=== PATIENT | female | born 1970 | race Caucasian/White ===

== ENCOUNTER → 2017-03-24 | Outpatient (CLI) | payer BC ==
--- NOTE | 2017-03-24 17:05 | KCIC ---
Bilateral digital screening mammograms: Reason for examination: Routine screening. Comparison is made to previous study dated 07/23/2012. The skin and nipples show no abnormalities. No abnormal axillary lymph nodes are seen. Bilateral breast implants on now present. The breast parenchyma is heterogeneously dense. (Breast density: Category C) There is suggestion of a small nodular density close to the medial aspect of the implant on the right cc view measuring approximately 6 mm in size. Recommend further evaluation with ultrasound. There are no other new dominant masses, suspicious calcifications or architectural distortion. A few benign calcifications are seen. Impression: Possible 6 mm nodule in the medial right breast seen on cc view adjacent to the implant. Recommend further evaluation with ultrasound. Your patient's mammogram demonstrates that she has dense breast tissue (breast density category C or D), which could hide abnormalities, and if she has other risk factors for breast cancer that have been identified, she might benefit from supplemental screening tests that may be suggested by you as her ordering physician. Dense breast tissue, in and of itself, is a relatively common condition. Therefore, this information is not provided to cause undue concern, but rather to raise your awareness and to promote discussion with your patient regarding the presence of other risk factors, in addition to dense breast tissue. Your patient's mammography results will be sent to her. BI-RADS Category 0: Incomplete. Ultrasound follow-up is recommended.. "Our facility is accredited by the [employer] Mammography [employer]." This patient's information has been entered into a reminder system for the patient to be notified with the results of her examination and a target date for the next mammogram. Electronically signed by: Esthela Ledesma MD (03/24/2017 5:02 PM)
== END | disposition home or self-care (01) ==
LOC: KCIC MAMMO 13:27
PROVIDERS: ATTEND Advanced Practice Midwife
DX: Z12.31 Encounter for screening mammogram for malignant neoplasm of breast (principal)
CPT/HCPCS: G0202; 77067

== ENCOUNTER → 2017-04-03 | Outpatient (CLI) | payer BC ==
--- NOTE | 2017-04-03 12:12 | KCIC ---
EXAM: Right breast sonogram. HISTORY: 46-year-old female presents for evaluation of a nodule within the right breast demonstrated on a screening mammogram dated 03/24/2017. TECHNIQUE: Sonographic imaging of the right breast including all 4 quadrants of the right hilar region was performed. COMPARISON: Mammogram dated 03/24/2017. FINDINGS: There is a 1.3 cm benign cyst with thin internal septation within the 9:00 position of the right breast 5 cm from the nipple, corresponding with a palpable abnormality of concern. There is no sonographic correlate for nodularity within the medial right breast, favoring summation artifact on the prior mammogram. IMPRESSION: 1. 1.3 cm benign cyst at the 9:00 position of the right breast, corresponding with a palpable abnormality of concern. 2. No suspicious sonographic finding to correlate with mammographic nodularity. This favors summation artifact. 3. BI-RADS Category 2: Benign finding(s). Annual mammography is recommended. Electronically signed by: Jossy Seay MD (04/03/2017 12:09 PM)
== END | disposition home or self-care (01) ==
LOC: KCIC US 11:13
PROVIDERS: ATTEND Advanced Practice Midwife
DX: N60.01 Solitary cyst of right breast (principal)
CPT/HCPCS: 76641

== ENCOUNTER → 2018-04-24 | Outpatient (CLI) | payer BC | END | disposition home or self-care (01) | LOC: KCIC MAMMO 08:47 | DX: Z12.31 Encounter for screening mammogram for malignant neoplasm of breast (principal) | CPT/HCPCS: 77063; 77067 ==

== ENCOUNTER → 2019-07-29 | Outpatient (CLI) | payer BC ==
--- NOTE | 2019-07-29 17:05 | KCIC ---
Bilateral digital screening mammograms with 3-D tomosynthesis: Reason for examination: Routine screening. Comparison is made to previous studies dated 04/24/2018 and 03/24/2017. Bilateral mammograms in CC and oblique projections were obtained with 2-D imaging and 3-D tomosynthesis imaging on a Siemens Inspiration unit and reviewed on the workstation. Interpretation was made with the benefit of CAD. The skin and nipples show no abnormalities. No abnormal axillary lymph nodes are seen. The breast parenchyma is extremely dense. (Breast density: Category D.) There appears to be a circumscribed nodular density laterally in the right breast probably representing a cyst. There also appears to be a circumscribed nodular density in the superior left breast which also likely represents a cyst. These densities can further evaluated with ultrasound. There are no other dominant masses, suspicious calcifications or architectural distortion evident. Impression: Circumscribed nodular densities seen laterally in the right breast and superior in the left breast. These likely represent cysts. Further evaluation with ultrasound is recommended. Your patient's mammogram demonstrates that she has dense breast tissue (breast density category C or D), which could hide abnormalities, and if she has other risk factors for breast cancer that have been identified, she might benefit from supplemental screening tests that may be suggested by you as her ordering physician. Dense breast tissue, in and of itself, is a relatively common condition. Therefore, this information is not provided to cause undue concern, but rather to raise your awareness and to promote discussion with your patient regarding the presence of other risk factors, in addition to dense breast tissue. Your patient's mammography results will be sent to her. BI-RAD Category 0: Incomplete. Needs additional imaging evaluation. "Our facility is accredited by the [employer] Mammography Program." This patient's information has been entered into a reminder system for the patient to be notified with the results of her examination and a target date for the next mammogram. Electronically signed by: Esthela Ledesma MD (07/29/2019 5:02 PM) [id number]
== END | disposition home or self-care (01) ==
LOC: KCIC MAMMO 15:10
PROVIDERS: ATTEND Advanced Practice Midwife
DX: Z12.31 Encounter for screening mammogram for malignant neoplasm of breast (principal); N64.89 Other specified disorders of breast
CPT/HCPCS: 77063; 77067

== ENCOUNTER → 2019-08-13 | Outpatient (CLI) | payer BC ==
--- NOTE | 2019-08-13 14:07 | KCIC ---
Bilateral breast ultrasound: Reason for examination: Nodular densities on screening mammogram. Comparison is made to mammographic examination dated 07/29/2019. Ultrasound examination was performed of the breast and axilla bilaterally. In the right breast at the 9:00 position 6 cm from the nipple, there is a 4.6 mm hypoechoic circumscribed nodule which has a benign fibrocystic appearance. In the 9:00 position 3 cm from the nipple, there is a 1.3 cm simple cyst. In the 11:00 position 7 cm from the nipple, there are 2 small hypoechoic lesions measuring 2.4 and 2.8 mm in size which have benign fibrocystic appearances. No suspicious-appearing nodules are seen. No abnormal appearing lymph nodes are seen in the right axilla. In the left breast at the 12:30 position 5 cm from the nipple, there is a small 3.2 mm hypoechoic fibrocystic lesion. At the 1:00 position 8 cm from the nipple, there 2 small fibrocystic type lesions measuring 4.5 and 2.9 mm in size. There is focally dense fibroglandular tissue in the 10:00 position 4 cm from the nipple. No other cystic or solid nodules are seen. No abnormal appearing lymph nodes are seen in the left axilla. IMPRESSION: Small subcentimeter hypoechoic fibrocystic type lesions bilaterally. 1.3 cm simple cyst in the right breast at the 9:00 position. No suspicious-appearing lesion seen. Recommend 6 month follow-up with ultrasound. BI-RADS Category 3: Probably Benign. "Our facility is accredited by the [employer] Mammography [employer]." This patient's information has been entered into a reminder system for the patient to be notified with the results of her examination and a target date for the next mammogram. Electronically signed by: Esthela Ledesma MD (08/13/2019 2:04 PM) [id number]
== END | disposition home or self-care (01) ==
LOC: KCIC US 13:00
PROVIDERS: ATTEND Advanced Practice Midwife
DX: N60.01 Solitary cyst of right breast (principal); N64.89 Other specified disorders of breast
CPT/HCPCS: 76641

== ENCOUNTER → 2021-02-04 | Outpatient (CLI) | payer SELFPAY ==
--- NOTE | 2021-02-04 12:23 | KCIC ---
Bilateral diagnostic digital mammograms with 3-D tomosynthesis: Reason for examination: Follow-up nodules. Comparison is made to previous studies dated back to 03/24/2017. Bilateral mammograms in CC and oblique projections were obtained with 2-D imaging and 3-D tomosynthes is imaging on a Siemens Inspiration unit and reviewed on the workstation. Interpretation was made wit h the benefit of CAD. The skin and nipples show no abnormalities. No abnormal axillary lymph nodes are seen. Bilateral jacobo st implants remain present. The breast parenchyma is extremely dense. (Breast density: Category D.) T here continues be a small nodular parenchymal density posterior laterally in the right breast at appr oximately the 9:00 position. There is also some nodularity suggested posterior laterally in the left breast on cc view. There are no other new dominant masses, suspicious calcifications or architectural distortion. Benign calcifications are present. Impression: Nodular density at approximately the 9:00 C position of the right breast and some nodularity posterio r laterally in the left breast on CC view. Ultrasound to follow. Your patient's mammogram demonstrates that she has dense breast tissue (breast density category C or D), which could hide abnormalities, and if she has other risk factors for breast cancer that have bee n identified, she might benefit from supplemental screening tests that may be suggested by you as her ordering physician. Dense breast tissue, in and of itself, is a relatively common condition. Therefo re, this information is not provided to cause undue concern, but rather to raise your awareness and t o promote discussion with your patient regarding the presence of other risk factors, in addition to d ense breast tissue. Your patient's mammography results will be sent to her. BI-RAD Category 0: Incomplete. Needs additional imaging evaluation. Bilateral breast ultrasound: Comparison is made to previous study dated 08/13/2019. Ultrasound examination of the breasts and axilla bilaterally was performed. The right breast, but breast implant appears to be intact. There continues to be a 4 x 3 mm hypoechoi c nodule at the 9:00 position 6 cm from the nipple which is stable. At the 9:00 position 3 cm from th e nipple, there is a 4 mm hypoechoic nodule which probably represents the regressed cyst. At the 11:0 0 position 7 cm from the nipple, there are small hypoechoic lesions consistent with resolving cysts/f ibrocystic changes. There are no abnormal appearing lymph nodes seen in the right axilla. In the left breast, at the 12:30 position 5 cm from the nipple, there is a benign-appearing 4.3 mm fi brocystic lesion. At the 1:00 position 8 cm from the nipple, there is a small 2.5 mm hypoechoic fibro cystic lesion. At the 1:00 position 8 cm from the nipple there is a 4.5 mm-circumscribed nodule with fibrocystic appearance. At the 3:30 position 8 cm from the nipple, there is a 6.3 mm elongated lesion fibrocystic appearance. At the 3:00 position 6 cm from the nipple, there is a 2 mm cystic-appearing lesion. At the 4:00 position, there is a hypoechoic circumscribed lesion. There are no suspicious lym ph nodes in the axilla. IMPRESSION: Continued presence of multiple small cystic and fibrocystic type lesions. There has been improvement in the larger cystic lesion seen previously in the right breast. No grossly suspicious abnormalities are seen. Recommend 6 month bilateral breast ultrasound follow-up exam. BI-RADS Category 3: Probably Benign. "Our facility is accredited by the [employer] Mammography Program." This patient's information has been entered into a reminder system for the patient to be notified wit h the results of her examination and a target date for the next mammogram. Electronically signed by: Esthela Ledesma MD (02/04/2021 12:20 PM) [id number]
== END ==
LOC: KCIC MAMMO 08:13
PROVIDERS: ATTEND Family Medicine
DX: N63.11 Unspecified lump in the right breast, upper outer quadrant (principal)
CPT/HCPCS: 76641; 77066; G0279; 77062

== ENCOUNTER → 2021-11-25 | Outpatient (CLI) | payer BC ==
--- NOTE | 2021-11-25 15:30 | KCIC ---
Bilateral breast ultrasound: Reason for examination: Follow-up nodules. Comparison is made to previous examinations dated 02/04/2021 and 08/13/2019. Ultrasound examinations were performed of the breasts and axillary regions bilaterally. Right breast implant is present and appears to be intact. At the 9:00 position 6 cm from the nipple, there continues be a small 3.5 mm circumscribed nodule which is stable. At the 9:00 position 3 cm fro m the nipple, there is a 3.6 mm hypoechoic circumscribed lesion which is stable. At the 11:00 positio n 7 cm from the nipple, there is a 9 mm cyst within the adjacent small 2.1 mm hypoechoic fibrocystic lesion which is stable. At the 11:00 position 7 cm from the nipple, there is a 2.7 mm hypoechoic fibr ocystic lesion. At the 11:00 position 7 cm from the nipple, there is a 6 mm cystic lesion. At the 8:0 0 position 6 cm from the nipple, there is a 3.8 mm hypoechoic circumscribed lesion with a complicated cystic appearance which is stable. No suspicious nodules are seen. No abnormal appearing lymph nodes are seen right axilla. In the left breast, there is a 2.4 mm fibrocystic type lesion at the 1:00 position 8 cm from the nipp le. There is a 5.2 mm hypoechoic circumscribed lesion in parallel orientation at the 3:30 position 8 cm from the nipple which is stable. There is a 3.9 mm lesion consistent with a cyst at the 3:00 posit ion 6 cm from the nipple. No abnormal appearing lymph nodes are seen in the axilla. IMPRESSION: Multiple small benign-appearing cystic and fibrocystic nodules bilaterally which are stable. Recommend routine mammographic follow-up. BI-RADS Category 2: Benign. "Our facility is accredited by the [employer] Mammography Program." This patient's information has been entered into a reminder system for the patient to be notified wit h the results of her examination and a target date for the next mammogram. Electronically signed by: Esthela Ledesma MD (11/25/2021 3:27 PM) [id number]
== END ==
LOC: KCIC US 13:02
PROVIDERS: ATTEND Nurse Practitioner Acute Care
DX: N63.11 Unspecified lump in the right breast, upper outer quadrant (principal); R92.8 Other abnormal and inconclusive findings on diagnostic imaging of breast
CPT/HCPCS: 76641